=== PATIENT | male | born 1975 | race Caucasian/White ===

== ENCOUNTER 2016-08-24 16:41 | Emergency (ER) | payer OTHER ==
[2016-08-24 17:00] VITALS: PULSE 77; RESP 16; TEMP 98
[2016-08-24 17:14] VITALS: BP 181/113
== END 2016-08-24 17:27 | disposition home or self-care (01) | DRG 159 ==
LOC: ED 16:41
DX: K04.7 Periapical abscess without sinus (principal)
CPT/HCPCS: 99282; 99283